=== PATIENT | male | born 1985 | race Caucasian/White ===

== ENCOUNTER 2023-06-01 09:30 | Inpatient (IN) | payer MEDICAID, SELFPAY ==
--- NOTE | ~2023-06-01 | CT_ITS ---
EXAMINATION: CT ABDOMEN AND PELVIS WITHOUT CONTRAST CLINICAL INFORMATION: 38-year-old male with left flank pain COMPARISON: None available. TECHNIQUE: Multidetector volumetric imaging was performed from the superior aspect of the liver through the pubic symphysis. Sagittal and coronal reformatted images were obtained on the technologist's workstation. This CT examination was performed using dose optimization techniques as appropriate, variously including the following: *Automated exposure control *Adjustment of mA and/or kV according to patient size (this includes techniques or standardized protocols for targeted exams where dose is matched to indication/reason for exam; i.e. extremities or head) *Use of iterative reconstruction technique DLP: 1012 mGy-cm FINDINGS: LUNG BASES: The visualized lung bases are unremarkable. There is trace of pericardial effusion. LIVER, GALLBLADDER, AND BILIARY TREE: The liver is enlarged of normal shape, and low attenuation. No focal hepatic lesion or biliary ductal dilatation is present. Gallbladder is surgically absent. PANCREAS: Unremarkable. SPLEEN: Unremarkable. ADRENAL GLANDS: Unremarkable. KIDNEYS AND URETERS: Right kidney is unremarkable. Left kidney demonstrate hydroureteronephrosis, perinephric stranding, obstruction of distal right ureter by conglomerate of stones with the largest measured 0.7 x 1.0 cm. And is smaller measured 0.4 x 0.2 cm. There is perinephric and periureteral stranding. Punctate calcifications seen in the collecting system of left kidney. BLADDER: Unremarkable. GASTROINTESTINAL TRACT: The small and large bowel are unremarkable. The appendix is unremarkable. ABDOMINAL WALL: No significant hernia is appreciated. LYMPH NODES: Normal. VASCULAR: Unremarkable. PELVIC VISCERA: Unremarkable. OSSEOUS STRUCTURES: Unremarkable. CT/CT abdomen pelvis wo IV con IMPRESSION: 1. Obstructive uropathy on the left by conglomerate of stones in the distal left ureter with hydroureteronephrosis, perinephric and periureteral stranding. 2. Hepatomegaly and steatosis. 3. Trace of pericardial effusion. 4. Status post cholecystectomy. Fleischner guidelines were followed.
--- NOTE | ~2023-06-01 | FL_ITS ---
EXAMINATION: XR FLUOROSCOPY WITH IMAGES CLINICAL INFORMATION: Left ureteral stone. COMPARISON: Previous CT of the abdomen and pelvis 06/01/2023 TECHNIQUE: Fluoroscopy Supervised By: Dr. Miles Sommer. Fluoroscopy Time: 0.0 minutes. Cumulative Dose: 7.89 mGy. DAP: 2.15 Gycm2. Images: 2. FINDINGS: Initial image demonstrates contrast injection of the left distal ureter which is normal-appearing. Second image demonstrates proximal end of a left internal ureteral stent. FL/FL guidance in OR IMPRESSION: Fluoroscopic guidance for left ureteral stent placement.
[2023-06-01 09:58] VITALS: BP 167/107; PULSE 63; RESP 16; TEMP 36.7; O2SAT 98; BMI 44.3
[2023-06-01 10:13] LABS: MANUAL DIFF FLAG NO
[2023-06-01 10:16] LABS: Basophils Absolute Auto 0.1 X10*3/uL (0.0-0.2); Basophils Percent Auto 0.4 % (0-2); Eosinophils Absolute Auto 0.2 X10*3/uL (0.0-0.4); Eosinophils Percent Auto 1.3 % (0-4); Hematocrit 41.8 % (42.0-52.0); Hemoglobin 14.5 g/dl (14.0-18.0); Imm Gran Abs Auto 0.09 X10*3/uL (0.00-0.03); Imm Gran Pct Auto 0.5 % (0.0-0.4); Lymphocytes Absolute Auto 1.9 X10*3/uL (1.2-4.9); Lymphocytes Percent Auto 11.6 % (20-40); Mean Corpuscular HGB Conc 34.7 g/dl (31.0-36.0); Mean Corpuscular Hemoglobin 33.2 pg (27.0-33.0); Mean Corpuscular Volume 95.7 fL (80.0-98.0); Mean Platelet Volume 9.2 fL (9.4-12.4); Monocytes Absolute Auto 1.4 X10*3/uL (0.1-1.2); Monocytes Percent Auto 8.3 % (2-11); Neutrophils Absolute Auto 12.9 x10*3/uL (2.0-8.3); Neutrophils Percent Auto 77.9 % (45-73); Platelet Count 288 X10*3/uL (160-400); Red Blood Count 4.37 X10*6/uL (4.60-5.80); Red Cell Distribution Width 14.1 % (11.0-16.0); White Blood Count 16.6 X10*3/uL (4.8-10.8)
[2023-06-01 10:29] LABS: Alanine Aminotransferase 60 U/L (0-40); Albumin Level 5.1 g/dL (3.5-5.0); Alkaline Phosphatase 106 U/L (39-117); Anion Gap 18 (12-20); Aspartate Amino Transferase 65 U/L (5-37); Bilirubin Total 1.2 mg/dL (0.0-1.0); Blood Urea Nitrogen 16 mg/dL (9-16); Calcium 10.5 mg/dL (8.4-10.2); Carbon Dioxide 21 mmol/L (22-29); Chloride 101 mmol/L (96-108); Creatinine Clr Calc Pharmacy 77.9; Estimated Glomerular Filt Rate 42; Glucose Random 126 mg/dL (60-115); Potassium 4.2 mmol/L (3.3-5.1); Sodium 136 mmol/L (135-145); Total Protein 8.9 g/dL (6.5-8.0)
[2023-06-01 10:29] LABS: Appearance Urine Clear; Color Urine Yellow; Glucose Urine UA Negative (Negative); Leukocyte Esterase Urine Negative (Negative); Nitrite Urine Negative (Negative); PH 5.5 (5.0-9.0); Specific Gravity - Urine >= 1.030 (1.005-1.025); UMIC TRIGGER UACC YES; Urine Blood Large (3+) (Negative); Urine Ketones Negative (Negative); Urine Protein 30 (1+) mg/dL (Neg-Trace)
[2023-06-01 10:33] LABS: Bacteria Urine None Seen (None Seen); Hyaline Casts Urine 0-2 /LPF (0-2); RBC Urine >20 /HPF (0-2); Squamous Epithelial Cell Urine 0-2 /HPF (0-2); WBC Urine 0-5 /HPF (0-5)
--- NOTE | 2023-06-01 17:25 | ED.GENADULT ---
HPI - General Adult General Chief complaint: General Medical Stated complaint: Kidney pain Time Seen by Provider: 06/01/23 17:06 Source: patient Mode of arrival: ambulatory Limitations: no limitations History of Present Illness HPI narrative: Patient is a 38-year-old male who presents emergency department for evaluation of left flank pain with sudden onset yesterday afternoon. Pain has been constant with varying intensity. Upon arrival to the emergency department today pain began radiating into the left groin. He states that while in the waiting room he went to the bathroom and he passed a kidney stone. He states that the pain he is experiencing is consistent with prior kidney stones. Last stone was 6 months ago, he was admitted to [facility] inpatient for management, but denies any lithotripsy or stents. He denies fevers, chills, has had associated nausea without vomiting, denies abdominal pain. Has no additional physical complaints. Related Data Home Medications Medication Instructions Recorded Confirmed No Known Home Meds 06/01/23 06/01/23 Allergies Allergy/AdvReac Type Severity Reaction Status Date / Time No Known Allergies Allergy Verified 06/01/23 09:57 Review of Systems Review of Systems: Yes all other systems are reviewed and are negative [facility] Past Medical History Attestation statement: The following information was validated with the patient. Source: old records reviewed Social History Social History Alcohol intake: never Smoked in Last 30 Days: No Use of substances other than those prescribed or required for medical reasons: Yes Substance Use Type: Heroin Advance Directives: No Advance Directives Information Provided: No Physical Exam ED Vital Signs: Vital Signs - 24 hr 06/01/23 09:58 06/01/23 18:00 06/02/23 01:21 Temperature 98.1 F 98.1 F 97.9 F Pulse Rate 63 61 60 Respiratory Rate 16 16 14 Blood Pressure 167/107 H 146/89 H 132/88 Pulse Oximetry 98 97 96 Oxygen Delivery Method Room Air Room Air Room Air 06/02/23 04:29 Temperature 97.7 F Pulse Rate 60 Respiratory Rate 17 Blood Pressure 150/92 H Pulse Oximetry 98 Oxygen Delivery Method Room Air BMI result Body Mass Index 44.3 Appearance: Alert.?Oriented to person, place and time. No acute distress.?Normal affect. Eyes: Pupils equal, round and reactive to light.? ENT: Pharynx normal.?? Neck: Normal inspection.? Neck supple.?? CVS: Heart sounds normal. Normal heart rate and rhythm.? Pulses normal.?? Respiratory: No respiratory distress.? Lung sounds clear to auscultation bilaterally?? Abdomen: Soft and non-tender. Normoactive bowel sounds. ?Left CVA tenderness Skin: Skin warm and dry.? Normal skin color.? Extremities: No lower extremity edema.? Neuro: Moves all extremities spontaneously. Sensation intact bilaterally. No focal neuro deficits. Ambulates with normal steady gait. Course Reevaluation(s) Reevaluation #1: CT imaging revealing obstructive uropathy of the left by conglomerate of stones in the distal left ureter with hydroureteronephrosis perinephric stranding and periureteral stranding, reviewed these findings with Urology on-call; Dr. Sommer, patient continues to have pain despite management with morphine. At this time he is admitted to urology service, plan to be NPO after midnight for surgery tomorrow. Patient is agreeable with this plan of care. Time: 20:48 Medications Administered Discontinued Medications Generic Name Dose Route Start Last Admin Trade Name Freq PRN Reason Stop Dose Admin Sodium Chloride 1,000 mls @ 999 mls/hr 06/01/23 17:30 06/01/23 21:47 Ns IV 06/01/23 18:30 Infused .Q1H1M SHANNA Infusion Morphine Sulfate 4 mg 06/01/23 17:16 06/01/23 17:44 Morphine Sulfate 4 Mg/Ml Cartridge IVPUSH 06/01/23 17:17 4 mg ONCE ONE Administration Protocol Morphine Sulfate 4 mg 06/01/23 21:29 06/01/23 21:45 Morphine Sulfate 4 Mg/Ml Cartridge IVPUSH 06/01/23 21:30 4 mg ONCE ONE Administration Protocol Ondansetron HCl 4 mg 06/01/23 17:16 06/01/23 17:44 Ondansetron Hcl 4 Mg/2 Ml Vial IVPUSH 06/01/23 17:17 4 mg ONCE ONE Administration Medical Decision Making Medical Decision Making MDM Narrative: Patient is a 38-year-old male who presents emergency department for evaluation of left flank pain with concern for nephrolithiasis given his past history. At the time my examination he appears uncomfortable but states that his pain has significantly improved compared to upon his arrival to the emergency department. He endorses having passed a kidney stone while in the waiting room. Currently he is afebrile without tachycardia, he does have left CVA tenderness but abdominal examination is benign. I reviewed labs that were obtained from triage, noted to have leukocytosis of 16.6, urinalysis is without evidence of infection however. Urinalysis with microscopic hematuria, MERI with BUN of 16 creatinine 1.85, no prior labs available for comparison, he denies any known history of abnormal renal function. He is noted to have mildly elevated LFTs, this has occurred in the past, and he reports that he has been seen by his PCP for this, he denies any right upper quadrant/epigastric pain, vomiting, food intolerance, diarrhea, constipation. I have a low suspicion for acute hepatitis, cholelithiasis, cholecystitis, however will add on lipase. Plan to obtain CT of the abdomen and pelvis to evaluate for hydronephrosis, pyelonephritis, obstructive calculi, low suspicion for diverticulitis, bowel obstruction, appendicitis. Patient received normal saline 1 L IV fluid, morphine IV for pain, Zofran IV for nausea. Differential Diagnosis Differential Diagnoses: The differential diagnosis associated with the presentation includes (As noted above) Admission/Observation Consideration of admission/observation: Escalation of care including admission/observation considered (I considered admission for flank pain and hematuria, see course narrative for further detail) Lab Data MDM Lab Attestation statement: I reviewed the patient's lab results. (See narrative above for further detail) 06/01/23 10:11 06/01/23 10:11 Labs: Lab Results 06/01/23 06/01/23 06/01/23 Range/Units 10:11 10:21 19:03 WBC 16.6 H (4.8-10.8) X10*3/uL RBC 4.37 L (4.60-5.80) X10*6/uL Hgb 14.5 (14.0-18.0) g/dl Hct 41.8 L (42.0-52.0) % MCV 95.7 (80.0-98.0) fL MCH 33.2 H (27.0-33.0) pg MCHC 34.7 (31.0-36.0) g/dl RDW 14.1 (11.0-16.0) % Plt Count 288 (160-400) X10*3/uL MPV 9.2 L (9.4-12.4) fL Immature Gran % (Auto) 0.5 H (0.0-0.4) % Neut % (Auto) 77.9 H (45-73) % Lymph % (Auto) 11.6 L (20-40) % [place] % (Auto) 8.3 (2-11) % Eos % (Auto) 1.3 (0-4) % Baso % (Auto) 0.4 (0-2) % Lymph # (Auto) 1.9 (1.2-4.9) X10*3/uL [place] # (Auto) 1.4 H (0.1-1.2) X10*3/uL Eos # (Auto) 0.2 (0.0-0.4) X10*3/uL Baso # (Auto) 0.1 (0.0-0.2) X10*3/uL Abs Immat Gran (auto) 0.09 H (0.00-0.03) X10*3/uL Absolute Neuts (auto) 12.9 H (2.0-8.3) x10*3/uL Absolute Nucleated RBC 0.000 (0.0-0.012) X10*3/uL Nucleated RBC % (auto) 0.0 (0.0-0.2) /100WBC Sodium 136 (135-145) mmol/L Potassium 4.2 (3.3-5.1) mmol/L Chloride 101 (96-108) mmol/L Carbon Dioxide 21 L (22-29) mmol/L Anion Gap 18 (12-20) BUN 16 (9-16) mg/dL Creatinine 1.85 H (0.5-1.4) mg/dL Estim Creat Clear Calc 77.9 Estimated GFR 42 Random Glucose 126 H (60-115) mg/dL Calcium 10.5 H (8.4-10.2) mg/dL Total Bilirubin 1.2 H (0.0-1.0) mg/dL AST 65 H (5-37) U/L ALT 60 H (0-40) U/L Alkaline Phosphatase 106 (39-117) U/L Total Protein 8.9 H (6.5-8.0) g/dL Albumin 5.1 H (3.5-5.0) g/dL Lipase 28 (8-78) U/L Urine Color Yellow [place] A Urine Appearance Clear Turbid Urine pH 5.5 5.5 (5.0-9.0) Ur Specific [place] >= 1.030 H 1.025 (1.005-1.025) Urine Protein 30 (1+) H 100 (2+) H (Neg-Trace) mg/dL Urine Glucose (UA) Negative Negative (Negative) mg/dL Urine Ketones Negative Negative (Negative) mg/dL Urine Blood Large (3+) H Large (3+) H (Negative) Urine Nitrite Negative Negative (Negative) Ur Leukocyte Esterase Negative Moderate (2+) H (Negative) Urine RBC >20 H >20 H (0-2) /HPF Urine WBC 0-5 >50 H (0-5) /HPF Ur Squamous Epith Cells 0-2 3-5 (0-2) /HPF Urine Bacteria None Seen None Seen (None Seen) Hyaline Casts 0-2 11-20 (0-2) /LPF Radiology Impression Discussion of test interpretation with radiology: I have reviewed the radiologist's reading. Independent Historian Clinical information obtained from an independent historian. History obtained from or confirmed by: Spouse (Present at bedside who confirms history) Discharge Plan Discharge Clinical Impression: Acute unilateral obstructive uropathy, Acute kidney injury Patient Disposition: Admitted As Inpatient
[2023-06-01 17:37] LABS: Lipase 28 U/L (8-78)
[2023-06-01] MEDS: 0.9 % Sodium Chloride 1,000 ML 999 ML IV (17:41)
[2023-06-01] MEDS: Morphine Sulfate 4 MG/ML CARTRIDGE IVPUSH ×2 (17:44→21:45)
[2023-06-01] MEDS: ondansetron HCL 4 MG/2 ML VIAL IVPUSH (17:44)
--- NOTE | 2023-06-01 17:47 | PC.NURSE ---
20g iv placed in the right AC w/o complications. IVF and medications administered per provider order. pt stating right flank pain is a 9/10 at this time. will reassess pain level shortly. family bedside for support. respirations even and unlabored at this time. call murillo placed within reach.
[2023-06-01 18:00] VITALS: BP 146/89; PULSE 61; RESP 16; TEMP 36.7; O2SAT 97
--- NOTE | 2023-06-01 18:30 | PC.NURSE ---
vss and up to date at this time. pt verbalizing pain decreased to 4/10 post medication administration. pt resting comfortably in no distress. respirations even and unlabored. call murillo placed within reach.
[2023-06-01 21:53] LABS: Appearance Urine Turbid; Color Urine Orange; Glucose Urine UA Negative (Negative); Leukocyte Esterase Urine Moderate (2+) (Negative); Nitrite Urine Negative (Negative); PH 5.5 (5.0-9.0); Specific Gravity - Urine 1.025 (1.005-1.025); UMIC TRIGGER UACC YES; Urine Blood Large (3+) (Negative); Urine Ketones Negative (Negative); Urine Protein 100 (2+) mg/dL (Neg-Trace)
[2023-06-01 21:55] LABS: Bacteria Urine None Seen (None Seen); RBC Urine >20 /HPF (0-2); UACC Culture Trigger YES; WBC Urine >50 /HPF (0-5)
[2023-06-02] VITALS (12 sets, daily range): BP systolic 105–172; BP diastolic 64–104; PULSE 53–91; RESP 14–20; TEMP 36.1–36.8; O2SAT 92–98; BMI 43.8
[2023-06-02] MEDS: HYDROmorphone HCl 0.5 MG/0.5 ML SYRINGE IVPUSH (05:48)
--- NOTE | 2023-06-02 07:30 | PC.NURSE ---
alert and oriented, respirations even and unlabored. patient reporting increase in pain and that the last pain medication did not help him. stating that it is painful for him to urinate and the pain increases after each urination.
[2023-06-02] MEDS: Morphine Sulfate 4 MG/ML CARTRIDGE 3 MG IVPUSH ×2 (09:45→13:55)
--- NOTE | 2023-06-02 09:51 | PC.NURSE ---
PRN pain medications utilized, complaining of 10/10 flank pain. remains NPO, aware of plan for admission. family and call murillo at bedside.
--- NOTE | 2023-06-02 09:53 | PHA.MEDREC ---
Pharmacy Consult ? Medication Reconciliation Pharmacy has completed the medication reconciliation.
--- NOTE | 2023-06-02 10:53 | PC.NURSE ---
patient resting comfortably in room, states that he was able to sleep and is no longer having pain. call murillo within reach.
--- NOTE | 2023-06-02 11:27 | P.HPGS_ITS ---
History of Present Illness History of Present Illness Date of Service: 06/02/23 Chief complaint: Distal ureteric stones Narrative: Michael Ray is a 38 year old male Presents to emergency room with left flank pain of sudden onset late Wednesday afternoon Variable intensity ranging from 6/10 to 9/10 Radiation to left groin States he passed a small kidney stone Prior renal stone former Prior admission 6 months at [facility] but cannot remember if intervention performed Has associated nausea without vomiting, no fever or chills or hematuria. CT scan - Left kidney demonstrate hydroureteronephrosis, perinephric stranding, obstruction of distal right ureter by conglomerate of stones with the largestmeasured 0.7 x 1.0 cm. And is smaller measured 0.4 x 0.2 cm. There is perinephric and periureteral stranding Recommend cystoscopy, left retrograde, left ureteroscopy rigid with laser lithotripsy stent placement Review of Systems Constitutional: Constitutional: Reports as per HPI and Reports no additional constitutional complaints Cardiovascular: Cardiovascular: Reports as per HPI and Reports no additional cardiovascular complaints Respiratory: Respiratory: Reports as per HPI and Reports no additional respiratory complaints Gastrointestinal: Gastrointestinal: Reports as per HPI and Reports no additional gastrointestinal complaints Genitourinary: Genitourinary: Reports as per HPI Musculoskeletal: Musculoskeletal: Reports no additional musculoskeletal complaints and Reports as per HPI Neurologic: Reports system reviewed and no additional complaints, except as documented and Reports as per HPI PMFSH Social History Social History Alcohol intake: never Patient Tobacco Use Status: Tobacco use Unknown Smoked in Last 30 Days: No Use of substances other than those prescribed or required for medical reasons: Yes Substance Use Type: Heroin Advance Directives: No Advance Directives Information Provided: No Meds Allergies Allergy/AdvReac Type Severity Reaction Status Date / Time No Known Allergies Allergy Verified 06/01/23 09:57 Active Medications: Current Medications Ketorolac Tromethamine (Ketorolac Tromethamine 30 Mg/Ml Vial) 30 mg IVPUSH Q6H PRN PRN Reason: Pain, Moderate(Pain Scale 4-6) Morphine Sulfate (Morphine Sulfate 4 Mg/Ml Cartridge) 3 mg IVPUSH Q3H PRN; Protocol PRN Reason: Pain, Moderate(Pain Scale 4-6) Last Admin: 06/02/23 09:45 Dose: 3 mg Sodium Chloride (0.9 % Sodium Chloride Flush 3 Ml Syringe) 3 ml IVFLUSH QSHIFT [facility] Home Medications Medication Instructions Recorded Confirmed Last Taken Type No Known Home Meds 06/01/23 06/01/23 Unknown History Physical Exam Vital Signs: Vital Signs: Last Vital Signs Temp 97.8 F 06/02/23 10:11 Pulse 53 06/02/23 10:11 Resp 20 06/02/23 10:11 BP 167/97 H 06/02/23 10:11 Pulse Ox 92 06/02/23 10:11 O2 Del Method Room Air 06/02/23 10:11 BMI result Body Mass Index 44.3 Const: General: cooperative, healthy appearing, comfortable and no acute distress Orientation/consciousness: patient oriented x3 HEENT: Face and sinus: Yes normal facial exam Mouth: moist mucous membranes Neck: Neck: Yes normal visual inspection, Yes full ROM and Yes trachea midline Chest: Chest palpation & inspection: normal inspection of the chest Resp: Effort & Inspection: normal respiratory effort, able to speak in complete sentences and no respiratory distress GI: Inspection: Yes normal to inspection Back/Spine/Pelvis: Cervical Spine: normal cervical lordosis Thoracic/Lumbar Spine: thoracic and lumbar spine normal to inspection Skin: General skin exam: no rashes or lesions noted Neuro: General: patient oriented x3, tone normal and moves all extremities Extrem: General: Yes normal to inspection and Yes capillary refill normal Results Results Labs: Urine 06/01/23 06/01/23 Range/Units 10:21 19:03 Urine Color Yellow [place] A Urine Appearance Clear Turbid Urine pH 5.5 5.5 (5.0-9.0) Ur Specific [place] >= 1.030 H 1.025 (1.005-1.025) Urine Protein 30 (1+) H 100 (2+) H (Neg-Trace) mg/dL Urine Glucose (UA) Negative Negative (Negative) mg/dL Assessment and Plan (1) Acute unilateral obstructive uropathy: Status: Acute (2) Acute kidney injury: Status: Acute Plan Ureteroscopy We discussed the nature of the decision and reasonable alternatives for performing ureteroscopy. Options such as medical therapy were discussed. Interventions include chemical dissolution, ESWL, ureteroscopy with laser lithotripsy and stent placement, PCNL. The relative uncertainties and benefits related to each alternate procedure were adequately discussed. General surgical risks including, but not limited to - pain, bleeding, infection, myocardial infarction, pulmonary embolus, deep vein thrombosis and cerebrovascular accident which may result in further hospitalization were discussed. Full disclosure of the procedure as well as all major risks, benefits and complications were discussed including but not limited to damage to the urethra, bladder and kidney infection, damage to the ureter, stent migration or malposition, scarring to the renal pelvis, remnant stone fragments, subsequent stone passage with need for secondary procedures. The overall secondary procedure rate is approximately 10-15%. The overall clearance rate is approximately 90-95%. Success of the procedure in the short-term does not necessarily guarantee that long-term success will be maintained. Suitable follow up will need to be maintained. The patient showed understanding of discussion and wishes to proceed with - cystoscopy, retrograde, ureteroscopy, possible lithotripsy/stone basketing and stent on the left side Time Spent With Patient Time: Total time managing care of this patient today ____ minutes. Quality Stroke Does the patient have a stroke diagnosis?: No VTE Prior VTE?: No VTE Risk Level:: Surgical - low VTE Device Contraindication: Treatment Not Indicated VTE Drug Contraindication: Treatment Not Indicated Procedures Date of Service Date of Service: 06/02/23
[2023-06-02] MEDS: Ketorolac Tromethamine 30 MG/ML VIAL IVPUSH (16:44)
--- NOTE | 2023-06-02 16:47 | HO.ANESPROP2 ---
HPI - Anesthesia Eval Consult details Narrative: 38 M for cysto PMFSH Active Problems Active Problems: All Active Problems (Updated 06/02/23 @ 00:45 by Jany Chinchilla CNP) Acute kidney injury (Acute) Acute unilateral obstructive uropathy (Acute) Past Medical History Medical History Acute unilateral obstructive uropathy Family History Family history of problems with anesthesia: No Surgical History History of Problems with Anesthesia: No Social History Household Members: Family Housing: Apartment Do you presently have visiting nurse or other home services: No Alcohol intake: never Patient Tobacco Use Status: Current everyday Tobacco user Tobacco use type: Cigarette Cigarettes Per Day: 2 Substance Use Type: Marijuana Meds Allergies Allergy/AdvReac Type Severity Reaction Status Date / Time No Known Allergies Allergy Verified 06/11/23 10:40 Active Medications: Current Medications Levofloxacin (Levaquin) 500 mg in 100 mls @ 100 mls/hr IV PREOP ONE Stop: 06/02/23 17:37 Influenza Virus Vaccine (Flu Vacc [id number](6mos Up)/Pf 0.5 Ml Syringe) 0.5 ml IM .ONCE ONE Stop: 06/03/23 09:01 Ketorolac Tromethamine (Ketorolac Tromethamine 30 Mg/Ml Vial) 30 mg IVPUSH Q6H PRN PRN Reason: Pain, Moderate(Pain Scale 4-6) Last Admin: 06/02/23 16:44 Dose: 30 mg Morphine Sulfate (Morphine Sulfate 4 Mg/Ml Cartridge) 3 mg IVPUSH Q3H PRN; Protocol PRN Reason: Pain, Moderate(Pain Scale 4-6) Last Admin: 06/02/23 13:55 Dose: 3 mg Sodium Chloride (0.9 % Sodium Chloride Flush 3 Ml Syringe) 3 ml IVFLUSH QSHIFT SHANNA Last Admin: 06/02/23 16:12 Dose: Not Given Exam Exam Date and Time: June 02, 2023 1647 Height,Weight and Vital Signs: Height 5 ft 10 in Weight 138.5 kg Last Vital Signs Temp 97.7 F 06/02/23 16:37 Pulse 62 06/02/23 16:37 Resp 20 06/02/23 16:37 BP 134/89 06/02/23 16:37 Pulse Ox 96 06/02/23 16:37 O2 Del Method Room Air 06/02/23 16:37 Pertinent Lab Results Pertinent Lab Results: Laboratory Tests 06/01/23 06/01/23 06/01/23 10:11 10:21 19:03 WBC 16.6 H RBC 4.37 L Hgb 14.5 Hct 41.8 L MCV 95.7 MCH 33.2 H MCHC 34.7 RDW 14.1 Plt Count 288 MPV 9.2 L Immature Gran % (Auto) 0.5 H Neut % (Auto) 77.9 H Lymph % (Auto) 11.6 L [place] % (Auto) 8.3 Eos % (Auto) 1.3 Baso % (Auto) 0.4 Lymph # (Auto) 1.9 [place] # (Auto) 1.4 H Eos # (Auto) 0.2 Baso # (Auto) 0.1 Abs Immat Gran (auto) 0.09 H Absolute Neuts (auto) 12.9 H Absolute Nucleated RBC 0.000 Nucleated RBC % (auto) 0.0 Sodium 136 Potassium 4.2 Chloride 101 Carbon Dioxide 21 L Anion Gap 18 BUN 16 Creatinine 1.85 H Estim Creat Clear Calc 77.9 Estimated GFR 42 Random Glucose 126 H Calcium 10.5 H Total Bilirubin 1.2 H AST 65 H ALT 60 H Alkaline Phosphatase 106 Total Protein 8.9 H Albumin 5.1 H Lipase 28 Urine Color Yellow [place] A Urine Appearance Clear Turbid Urine pH 5.5 5.5 Ur Specific [place] >= 1.030 H 1.025 Urine Protein 30 (1+) H 100 (2+) H Urine Glucose (UA) Negative Negative Urine Ketones Negative Negative Urine Blood Large (3+) H Large (3+) H Urine Nitrite Negative Negative Ur Leukocyte Esterase Negative Moderate (2+) H Urine RBC >20 H >20 H Urine WBC 0-5 >50 H Ur Squamous Epith Cells 0-2 3-5 Urine Bacteria None Seen None Seen Hyaline Casts 0-2 11-20 Airway Mallampati Class: III Loose/Missing/Broken Teeth: Yes Assessment and Plan Assessment Anesthesia Assessment: Anesthesia Plan Discussed and Chart Reviewed Final Anesthetic Review Family History of Problems with Anesthesia: No History of Problems with Anesthesia: No NPO: Yes ASA Class: III and Emergency Final Preanesthetic Review: Meds/Allgs Chart Reviewed, Consent Obtained/Reviewed and Anes Risks/Benef Reviewed Patient Risk: Intermediate Procedure Risk: Intermediate Anesthetic Plan Anesthetic Plan: GA and Agree w/ Assess. and Plan Disposition: Standard PACU
--- NOTE | 2023-06-02 16:58 | PC.NURSE ---
dr. ovalles at bedside administering respiratory updraft dumob
--- NOTE | 2023-06-02 17:07 | MHC.SHP ---
Pre-Procedural Eval Section A Date of Service: 06/02/23 The patient is an INPATIENT: Yes Changes since office visit: No Cold of Flu in the past 2 weeks, No New Medical Problems, No Changes in Medication and No Patient answered all questions The History & Physical has been completed within 30 days and I have reviewed it.: Yes Section B Chief Complaint: Distal ureteric stones Allergies: Allergies Allergy/AdvReac Type Severity Reaction Status Date / Time No Known Allergies Allergy Verified 06/01/23 09:57 Plan I have reviewed the history and physical and performed a pertinent physical examination on my patient. No changes have occurred unless specified. Time Spent With Patient Time: Total time managing care of this patient today ____ minutes.
--- NOTE | 2023-06-02 18:02 | P.OP_ITS ---
Operative Note Operative Note Date of Service: 06/02/23 Narrative: PreOperative Diagnosis: distal left ureteric stone Post Operative Diagnosis: distal left ureteric stone Procedure: - cystoscopy, left retrograde - left dilatation of ureteric orifice under fluoroscopy - left ureteroscopy, laser lithotripsy, stone basketing - left stent placement Surgeon: Dr Miles Sommer Anesthesia: General Indications for procedure: recurrence stone former admission through emergency room with distal ureteric stone proximally with 12 mm and proximal hydroureteronephrosis. Previously seen at [facility] and untreated. Procedure: After informed consent was verified the patient was brought to the operating room and placed in a supine position. Anesthesia was administered per protocol. The patient was placed in a modified dorsal lithotomy position and prepped and draped in a sterile fashion. Safety pause time-out and side of surgery were confirmed. Images were available for review. Antibiotic administration confirmed. A 22 Turkmen cystoscope was inserted per urethra. The urethra was without aabnormality. The bladder was normal in its entirety. Both ureteric orifices were seen in normal position. The Left ureteric orifice was cannulated and a retrograde examination was performed. proximal hydroureteronephrosis with filling defect at distal portion of ureter . A Sensor guidewire was placed up to the level of the renal pelvis under fluoroscopy. debris and discolored urine was ejected around the wire into the bladder. The rigid cystoscope was removed. A Augustine dilator was placed over the Sensor guidewire and used to dilate the ureteric orifice under fluoroscopy. The dilator was removed. The semi rigid ureteral scope was placed alongside the Sensor guidewire. Large stone was encountered approximately 2 in from left ureteric orifice.. Using a 365 micro holmium laser fiber the stone was broken into small pieces using a combination of hammer and dusting techiques. Stone fragments were removed from the ureter using a 2.5 Turkmen ZeroTip basket. basket. Once the fragments were removed a decision was made to place a ureteric stent. Based on the height of the patient a 6 Fr x 28 stent was used. The string was removed from the stent prior to placement The rigid cystoscope was backloaded over the wire and advanced into the bladder. A 6 Turkmen by 28 cm double-J stent was placed into the renal pelvis and bladder under a combination of fluoroscopy and direct visualization. Stone debris that was within the bladder was then removed. The bladder was emptied. The patient tolerated the procedure well and was extubated in the operating room. They were transferred in stable condition to the recovery area. Pathology: Stones Drains: Double J stent as described above
--- NOTE | 2023-06-02 18:08 | PM.DS ---
DS: Providers Provider Date of Service: 06/02/23 Date of admission: 06/02/23 09:35 Primary care physician: None Physician DS: Diagnosis Discharge Diagnosis (1) Acute unilateral obstructive uropathy: Status: Acute (2) Acute kidney injury: Status: Acute DS: Summary Hospital Course Hospital Course: underwent ureteroscopy with laser lithotripsy and left stent placement on admission. Time spent discussing smoking cessation with patient: 3 to 10 minutes Status at Discharge Functional status at discharge: independent ambulation Overall status at discharge: patient is back to baseline Time Spent with Patient Time attestation: Total time managing care of this patient today ____ minutes. Discharge coordination time: Less than 30 minutes Quality: Safe Use of Opioids Does Pt have an Active Cancer Diagnosis on the Problem List?: No Quality: Stroke Does the patient have a stroke diagnosis?: No Physical Exam Vital Signs: Vital Signs: Last Vital Signs Temp 97.7 F 06/02/23 16:37 Pulse 62 06/02/23 16:37 Resp 20 06/02/23 16:37 BP 134/89 06/02/23 16:37 Pulse Ox 96 06/02/23 16:37 O2 Del Method Room Air 06/02/23 16:37 BMI result Body Mass Index 43.8 DS: Data Data Completed and Pending Pending studies at discharge: Pending at discharge 06/02/23 18:00 Surgical [PTH] Routine Labs on day of discharge: Laboratory Results - last 24 hr 06/01/23 19:03 Urine Color Leslie A Urine Appearance Turbid Urine pH 5.5 Ur Specific [place] 1.025 Urine Protein 100 (2+) H Urine Glucose (UA) Negative Urine Ketones Negative Urine Blood Large (3+) H Urine Nitrite Negative Ur Leukocyte Esterase Moderate (2+) H Urine RBC >20 H Urine WBC >50 H Ur Squamous Epith Cells 3-5 Urine Bacteria None Seen Hyaline Casts 11-20 Preliminary micro results at discharge 06/01/23 Unknown Urine Culture - Preliminary Urine clean catch - Urine hemphill top No growth to date. Imaging CT scan - abdomen: Radiologist's impression: ITS Impressions Abdomen/Pelvis CT 06/01/23 17:47 IMPRESSION: 1. Obstructive uropathy on the left by conglomerate of stones in the distal left ureter with hydroureteronephrosis, perinephric and periureteral stranding. 2. Hepatomegaly and steatosis. 3. Trace of pericardial effusion. 4. Status post cholecystectomy. Fleischner guidelines were followed. Discharge Plan Discharge Anticipated Discharge Date/Time: 06/02/23 18:05 Patient Disposition: Home, Self-Care Discharge Diagnosis: Distal left ureteric stone with acute renal insult Referrals: Physician,None [Primary Care Provider] - 1 Week Discharge Medications: New sulfamethoxazole-trimethoprim [Bactrim DS] 800-160 mg tablet 1 tab PO BID 3 Days Qty: 6 0RF tramadol 50 mg tablet 50 mg PO Q6H PRN (Reason: pain (scale score 1-3)) Qty: 8 0RF tamsulosin 0.4 mg capsule 0.4 mg PO BEDTIME 14 Days Qty: 14 0RF phenazopyridine [Pyridium] 100 mg tablet 100 mg PO TID PRN (Reason: Spasm) 4 Days Qty: 12 0RF naproxen 500 mg tablet 500 mg PO BID PRN (Reason: pain) 7 Days Qty: 14 0RF Discharge Orders: Discharge Order (Routine); Ordered 06/02/23 Ordered By: Miles Sommer Diet: Advance to usual diet Activity on Discharge: As tolerated Stand Alone Forms: Patient Portal Discharge page Care Plan Goals: stones Health Concerns: stones Plan of Treatment: stones Assessment: stones Patient Instructions: Ureteroscopy (DC)
[2023-06-02] MEDS: Phenazopyridine HCL 100 MG TABLET PO (18:43)
[2023-06-02] MEDS: Acetaminophen 325 MG TABLET 975 MG PO (19:24)
--- NOTE | 2023-06-02 20:27 | PC.NURSE ---
Flu vaccine administered in left upper arm,Vaccination information statement given to patient
[2023-06-09 19:23] LABS: Stone Source KIDNEY STONE
== END 2023-06-02 21:30 | disposition home or self-care (01) | DRG 661 ==
LOC: HO.ED 06-02 07:40 → HO.EDOVER 06-02 09:50 → HO.S3 06-02 10:54
PROVIDERS: Nurse Practitioner Family; Admitting Provider Urology; Emergency Provider Internal Medicine; Visit Provider Urology
PROC: 0T778DZ Dilation of Left Ureter with Intraluminal Device, Via Natural or Artificial Opening Endoscopic (ICD-10-PCS; principal; 2023-06-02 16:30)
DX: N13.2 Hydronephrosis with renal and ureteral calculous obstruction (principal); F17.210 Nicotine dependence, cigarettes, uncomplicated; N17.9 Acute kidney failure, unspecified; R31.29 Other microscopic hematuria; Z71.6 Tobacco abuse counseling; Z23 Encounter for immunization; Z87.442 Personal history of urinary calculi
CPT/HCPCS: 36415; 74176; 80053; 81001; 81003; 82365; 83690; 85025; 87086; 88300; 90686; 99285; C1758; C1769; C2617; J1170; J1885; J1956; J2250; J2270; J2405; J3010; Q9967

== ENCOUNTER → 2023-06-02 09:35 | Outpatient (BNV) | payer SELFPAY | PROVIDERS: Admitting Provider Urology; Emergency Provider Internal Medicine; Visit Provider Urology | DX: N13.9 Obstructive and reflux uropathy, unspecified (principal); N17.9 Acute kidney failure, unspecified | CPT/HCPCS: 52356; 74420; 99235 ==

== ENCOUNTER 2023-06-11 10:21 | Emergency (ER) | payer MEDICAID, SELFPAY ==
[2023-06-11 10:30] VITALS: BP 125/90; PULSE 77; RESP 18; TEMP 36.8; O2SAT 96; BMI 20.4
--- NOTE | 2023-06-11 10:57 | ED.MALEGU ---
HPI - Male Genitourinary General Chief complaint: Urogenital-Male Stated complaint: Infection S/P Surgery 06/02/23 Time Seen by Provider: 06/11/23 10:46 Source: patient, family and old records reviewed Mode of arrival: ambulatory Limitations: no limitations History of Present Illness HPI Narrative: 38 yo male just seen and treated here for L sided obstructive uropathy and underwent double J stent on 06/02 he had possible MERI at that time though no baseline. He comes to the ED today as he states he has insurance issue and could not get into the clinic though I am not sure about this. He has pain but no fevers, vomiting, no difficulty urinating. Complaint: other (flank pain) Onset (ago): week(s) (1+) Duration: intermittent Location: left flank Severity: moderate Quality: aching Relieving factors: none Exacerbating factors: none Context: other (recent procedure) Associated symptoms: Reports denies other symptoms Related Data Previous Rx's Medication Instructions Recorded naproxen 500 mg tablet 500 mg PO BID PRN pain 7 days #14 06/02/23 tabs phenazopyridine 100 mg tablet 100 mg PO TID PRN Spasm 4 days #12 06/02/23 (Pyridium) tabs sulfamethoxazole 800 1 tab PO BID 3 days #6 tabs 06/02/23 mg-trimethoprim 160 mg tablet (Bactrim DS) tamsulosin 0.4 mg capsule 0.4 mg PO BEDTIME 14 days #14 caps 06/02/23 tramadol 50 mg tablet 50 mg PO Q6H PRN pain (scale score 06/02/23 1-3) #8 tabs morphine 15 mg immediate release 15 mg PO TID PRN pain #10 tabs 06/11/23 tablet ondansetron 4 mg disintegrating 4 mg PO Q8H PRN nausea and 06/11/23 tablet vomiting #20 tabs Allergies Allergy/AdvReac Type Severity Reaction Status Date / Time No Known Allergies Allergy Verified 06/11/23 10:40 Review of Systems Review of Systems: Constitutional : No Fever, No Chills ENT/Mouth : No sore throat Eyes: No Eye Pain, No Swelling, No Redness Cardiovascular : No Chest Pain, No SOB Respiratory : No Cough, No Sputum, No Wheezing Gastrointestinal : no Nausea, no Vomiting, No Diarrhea, positive abdominal pain Genitourinary : no Dysuria, no urinary frequency, positive Hematuria, positive Flank Pain, no hesitancy Musculoskeletal : No joint pain, No Myalgias Skin : No Skin Lesions, No rash Neuro : No Weakness, No Numbness, No Headache Psych : No Anxiety/Panic, No Depression Heme/Lymph: No Bruising, No Lymphadenopathy Endocrine : No Polyuria, No Polydipsia All other systems reviewed and are negative [facility] Past Medical History Attestation statement: The following information was validated with the patient. Source: old records reviewed Medical History Acute unilateral obstructive uropathy Social History Social History Household Members: Family Housing: Apartment Do you presently have visiting nurse or other home services: No Alcohol intake: never Patient Tobacco Use Status: Current everyday Tobacco user Tobacco use type: Cigarette Cigarettes Per Day: 2 Smoked in Last 30 Days: Yes Use of substances other than those prescribed or required for medical reasons: Yes Substance Use Type: Marijuana Substance Use Frequency: Daily Advance Directives: No Advance Directives Information Provided: Yes Physical Exam Vital Signs: Vital Signs: Last Vital Signs Temp 98.2 F 06/11/23 10:30 Pulse 77 06/11/23 10:30 Resp 18 06/11/23 10:30 BP 125/90 H 06/11/23 10:30 Pulse Ox 96 06/11/23 10:30 O2 Del Method Room Air 06/11/23 10:30 BMI result Body Mass Index 20.4 Appearance: Alert. Oriented X3. No acute distress. Eyes: Pupils equal, round and reactive to light. ENT: Pharynx normal. Neck: Normal inspection. Neck supple. CVS: Normal heart rate and rhythm. Pulses normal. Respiratory: No respiratory distress. Breath sounds normal. Abdomen: Soft and nontender. Skin: Skin warm and dry. Normal skin color. Normal skin turgor. Extremities: No lower extremity edema. No calf ttp Neuro: Oriented X 3. No motor deficit. No sensory deficit. Course Course Course Narrative: ureteral stents removed Cr improved Medications Administered Discontinued Medications Generic Name Dose Route Start Last Admin Trade Name Freq PRN Reason Stop Dose Admin Morphine Sulfate 15 mg 06/11/23 11:05 06/11/23 11:19 Morphine Sulfate Immed Release 15 Mg Tablet PO 06/11/23 11:06 15 mg ONCE ONE Administration Ondansetron HCl 4 mg 06/11/23 11:05 06/11/23 11:20 Ondansetron Odt 4 Mg Tab.Derrick TREVINOINGU 06/11/23 11:06 4 mg ONCE ONE Administration Medical Decision Making Medical Decision Making [facility] Narrative: 38 yo male with PMH of obstructive uropathy here with s/p stent placement issues getting into clinic Differential Diagnosis Differential Diagnoses: The differential diagnosis associated with the presentation includes pain from stent Consult Healthcare Provider Management of the patient was discussed with: Automotive Salesperson (Dr. Sommer to remove stents in ED) Lab Data [facility] Lab Attestation statement: I reviewed the patient's lab results. 06/11/23 11:31 Labs: Lab Results 06/11/23 Range/Units 11:31 Sodium 136 (135-145) mmol/L Potassium 4.5 (3.3-5.1) mmol/L Chloride 105 (96-108) mmol/L Carbon Dioxide 21 L (22-29) mmol/L Anion Gap 15 (12-20) BUN 15 (9-16) mg/dL Creatinine 1.08 (0.5-1.4) mg/dL Estim Creat Clear Calc 86.1 Estimated GFR > 60 Random Glucose 139 H (60-115) mg/dL Calcium 10.0 (8.4-10.2) mg/dL Independent Historian Clinical information obtained from an independent historian. History obtained from or confirmed by: Parent External Record Review External record reviewed: Inpatient record Prescription Management I considered prescription management with: Pain Medication Discharge Plan Discharge Clinical Impression: Encounter for removal of ureteral stent Patient Disposition: Home, Self-Care Additional Instructions: return for fevers, vomiting, inability to urinate, pain or any other concerns. your kidney function is normal now. Regrese si tiene fiebre, v?mitos, incapacidad para orinar, dolor o cualquier otra inquietud. Toro funci?n renal ahora es normal. Prescriptions: New morphine 15 mg tablet 15 mg PO TID PRN (Reason: pain) Qty: 10 0RF Rx Instructions: partial fill okay; Partial Fill upon patient request. ondansetron 4 mg tablet,disintegrating 4 mg PO Q8H PRN (Reason: nausea and vomiting) Qty: 20 0RF No Action sulfamethoxazole-trimethoprim [Bactrim DS] 800-160 mg tablet 1 tab PO BID 3 Days Qty: 6 0RF tramadol 50 mg tablet 50 mg PO Q6H PRN (Reason: pain (scale score 1-3)) Qty: 8 0RF tamsulosin 0.4 mg capsule 0.4 mg PO BEDTIME 14 Days Qty: 14 0RF phenazopyridine [Pyridium] 100 mg tablet 100 mg PO TID PRN (Reason: Spasm) 4 Days Qty: 12 0RF naproxen 500 mg tablet 500 mg PO BID PRN (Reason: pain) 7 Days Qty: 14 0RF Print Language: Kinyarwanda
[2023-06-11] MEDS: Morphine Sulfate Immed Release 15 MG TABLET PO (11:19)
[2023-06-11] MEDS: Ondansetron ODT 4 MG TAB.RAPDIS TRANSLINGU (11:20)
[2023-06-11 11:49] LABS: Anion Gap 15 (12-20); Blood Urea Nitrogen 15 mg/dL (9-16); Carbon Dioxide 21 mmol/L (22-29); Chloride 105 mmol/L (96-108); Creatinine Clr Calc Pharmacy 86.1; Estimated Glomerular Filt Rate > 60; Glucose Random 139 mg/dL (60-115); Potassium 4.5 mmol/L (3.3-5.1); Sodium 136 mmol/L (135-145)
--- NOTE | 2023-06-11 12:25 | PC.NURSE ---
pt reporting pain from RUQ down to pt's urethra. pt medicated per mar with positive effect in pain relief. pt resting quietly on stretcher in no apparent distress. rr even/unlabored. pt visitor at bedside.
--- NOTE | 2023-06-11 13:02 | P.CNUR_ITS ---
History of Present Illness Consult details Consult date: 06/11/23 Narrative: INdwelling stent Seen by urology prior stone procedure for left distal renal stone In ER with stent pain Procedure in ER Cystoscopy with stent removal Will call office for f/u appointment Review of Systems 2 Constitutional: Constitutional: Denies chills and Denies fever(s) Cardiovascular: Cardiovascular: Reports no additional cardiovascular complaints and Denies syncope Respiratory: Respiratory: Denies cough Gastrointestinal: Gastrointestinal: Denies abdominal pain and Denies heartburn Genitourinary: Genitourinary: Reports as per HPI and Denies change in libido Neurologic: Denies syncope Psychiatric: Psychiatric: Denies change in libido Endocrine: Endocrine: Denies change in libido [facility] Past Medical History Medical History Acute unilateral obstructive uropathy Social History Social History Household Members: Family Housing: Apartment Do you presently have visiting nurse or other home services: No Alcohol intake: never Patient Tobacco Use Status: Current everyday Tobacco user Tobacco use type: Cigarette Cigarettes Per Day: 2 Smoked in Last 30 Days: Yes Use of substances other than those prescribed or required for medical reasons: Yes Substance Use Type: Marijuana Substance Use Frequency: Daily Advance Directives: No Advance Directives Information Provided: Yes Meds Allergies Allergy/AdvReac Type Severity Reaction Status Date / Time No Known Allergies Allergy Verified 06/11/23 10:40 Physical Exam 2 Vital Signs: Vital Signs: Last Vital Signs Temp 98.2 F 06/11/23 10:30 Pulse 77 06/11/23 10:30 Resp 18 06/11/23 10:30 BP 125/90 H 06/11/23 10:30 Pulse Ox 96 06/11/23 10:30 O2 Del Method Room Air 06/11/23 10:30 BMI result Body Mass Index 20.4 Const: General: cooperative, healthy appearing, comfortable and no acute distress Orientation/consciousness: patient oriented x3 HEENT: Face and sinus: Yes normal facial exam Mouth: moist mucous membranes Neck: Neck: Yes normal visual inspection, Yes full ROM and Yes trachea midline Chest: Chest palpation & inspection: normal inspection of the chest Resp: Effort & Inspection: normal respiratory effort, able to speak in complete sentences and no respiratory distress GI: Inspection: Yes normal to inspection Back/Spine/Pelvis: Cervical Spine: normal cervical lordosis Thoracic/Lumbar Spine: thoracic and lumbar spine normal to inspection Skin: General skin exam: no rashes or lesions noted Neuro: General: patient oriented x3, gait normal, tone normal and moves all extremities Extrem: General: Yes normal to inspection and Yes capillary refill normal Results Labs 06/11/23 11:31 Labs: Abnormal lab results 06/11/23 Range/Units 11:31 Carbon Dioxide 21 L (22-29) mmol/L Random Glucose 139 H (60-115) mg/dL BMP 06/11/23 11:31 Sodium 136 Potassium 4.5 Chloride 105 Carbon Dioxide 21 L BUN 15 Creatinine 1.08 Calcium 10.0 All other labs normal. Assessment and Plan (1) Encounter for removal of ureteral stent: Status: Acute Plan he will call for f/u Procedures Date of Service Date of Service: 06/11/23 Procedure Note Procedure Note: A well lubricated 16 Djiboutian cystoscope was placed No abnormality noted of urethra during placement Indwelling stent seen within bladder emerging from left ureteric orifices The stent was grasped with a 3 prong grasper and removed without difficulty The patient tolerated the procedure well CPT 51211
--- NOTE | 2023-06-11 13:17 | PC.NURSE ---
stent taken out at bedside by Dr. Sommer. pt tolerated well. pt ambulatory to bathroom.
== END 2023-06-11 13:21 | disposition home or self-care (01) ==
PROVIDERS: Emergency Provider Emergency Medicine
DX: N13.9 Obstructive and reflux uropathy, unspecified (principal); F17.210 Nicotine dependence, cigarettes, uncomplicated; Z71.6 Tobacco abuse counseling; Z79.899 Other long term (current) drug therapy
CPT/HCPCS: 36415; 80048; 99283; 99284

== ENCOUNTER → 2023-06-11 10:49 | Outpatient (BNV) | payer MEDICAID, SELFPAY | PROVIDERS: Emergency Provider Emergency Medicine; Visit Provider Urology | DX: Z46.6 Encounter for fitting and adjustment of urinary device (principal) | CPT/HCPCS: 52310 ==